=== PATIENT | female | born 1960 | race Caucasian/White ===

== ENCOUNTER → 2021-08-02 | Day surgery (SDC) | payer MEDICARE ==
[~2021-08-02] VITALS: Ht 165.1 cm; Wt 64.6 kg
[~2021-08-02] MED LIST: ANTIVERT25 MG PO; CYCLOBENZAPRINE10 MG PO; ELAVIL25 MG PO; HYDRALAZINE25 MG PO; LIPITOR40 MG PO; LOVAZA1 GM PO; MACROBID100 MG PO; SINGULAIR10 MG PO; SYMBICORT 80-10.2 GM INH; VENTOLIN (2.5 MG/3 M INH; ZOFRAN8 MG PO
== END | disposition home or self-care (01) ==
LOC: FAS 07-12 10:30
DX: R10.9 Unspecified abdominal pain (principal); J44.9 Chronic obstructive pulmonary disease, unspecified; I10 Essential (primary) hypertension; Z86.010 Personal history of colon polyps; Z88.5 Allergy status to narcotic agent; Z88.8 Allergy status to other drugs, medicaments and biological substances; Z91.048 Other nonmedicinal substance allergy status; Z72.0 Tobacco use
CPT/HCPCS: J2250; J2704; J7120